=== PATIENT | female | born 1940 | race Caucasian/White ===

== ENCOUNTER 2016-12-15 09:04 | Inpatient (IN) | payer SELFPAY ==
[~2016-12-15] VITALS: Ht 152.4 cm; Wt 65.4 kg
[2016-12-15] MEDS ORDERED: SOD CHLORIDE 0.9% 1,000 ML IV STA (09:49)
[2016-12-15 10:01] LABS: ADD SCAN DIFF NO
[2016-12-15 10:04] LABS: BASOPHILS % 0.7 % (0.0-2.0); EOSINOPHILS # 0.1 10^3/ul (0.0-0.5); EOSINOPHILS % 2.2 % (0.0-7.0); HEMATOCRIT 38.1 % (37.0-47.0); HEMOGLOBIN 12.7 g/dl (12.0-16.0); LYMPHOCYTES # 1.2 10^3/ul (0.8-2.9); LYMPHOCYTES % 20.5 % (15.0-51.0); MEAN CORPUSCULAR HEMOGLOBIN 31.8 pg (29.0-33.0); MEAN CORPUSCULAR HGB CONC 33.3 g/dl (32.0-37.0); MEAN CORPUSCULAR VOLUME 95.3 fl (82.0-101.0); MEAN PLATELET VOLUME 11.5 fl (7.4-10.4); MONOCYTE # 0.4 10^3/ul (0.3-0.9); NEUTROPHIL # 4.1 10^3/ul (1.6-7.5); NEUTROPHILS % 69.4 % (39.0-77.0); PLATELET COUNT 215 10^3/UL (140-415); RED CELL DISTRIBUTION WIDTH 13.6 % (11.5-14.5); WHITE BLOOD COUNT 5.8 10^3/ul (4.8-10.8)
[2016-12-15 10:12] LABS: ALBUMIN 4.3 g/dl (3.3-4.9); CHLORIDE 104 mmol/L (97-110); POTASSIUM 4.6 mmol/L (3.5-5.1); SODIUM 143 mmol/L (135-144)
[2016-12-15 10:14] LABS: CREATININE 0.76 mg/dl (0.44-1.00)
[2016-12-15 10:15] LABS: ALANINE AMINOTRANSFERASE 51 IU/L (13-69); ALBUMIN/GLOBULIN RATIO 1.22; ALKALINE PHOSPHATASE 182 IU/L (42-121); ANION GAP 18 (8-16); ASPARTATE AMINO TRANSFERASE 54 IU/L (15-46); BILIRUBIN,INDIRECT 0.3 mg/dl (0-1.1); BILIRUBIN,TOTAL 0.3 mg/dl (0.2-1.3); BLOOD UREA NITROGEN 21 mg/dl (7-20); CALCIUM 9.7 mg/dl (8.4-10.2); CARBON DIOXIDE 26 mmol/L (21-31); GLUCOSE 74 mg/dl (70-220); TOTAL PROTEIN 7.8 g/dl (6.1-8.1)
--- NOTE | 2016-12-15 10:27 | RADRPT ---
PROCEDURE: XR Chest AP portable CLINICAL INDICATION: Trauma, fall, abdominal pain TECHNIQUE: An AP portable radiograph of the chest was submitted. COMPARISON: None. FINDINGS: Support Hardware: None Cardiovascular: The cardiovascular silhouette appears unremarkable except for atherosclerotic change involving the aorta. Lung Jama: The lung jama appear clear with no nodule, alveolar infiltrate, or interstitial promi nence evident. Pleural Spaces: No pneumothorax or pleural effusion is identified. Osseous Structures: The osseous elements appear rarefied. Soft Tissues: The soft tissues appear unremarkable. IMPRESSION: 1. Atherosclerotic aorta 2. Otherwise, unremarkable portable chest. Physician Ricky Date Time Electronically viewed and signed by Physician Ricky on 12/15/2016 10:26 /
[2016-12-15 10:31] LABS: TROPONIN-I < 0.012 ng/ml (0.00-0.12)
[2016-12-15 10:32] LABS: ADD UMIC YES; URINE BILIRUBIN (Dip) NEGATIVE (NEGATIVE); URINE BLOOD (Dip) 1+ (NEGATIVE); URINE COLOR LT. YELLOW (YELLOW); URINE GLUCOSE (Dip) NEGATIVE (NEGATIVE); URINE KETONES (Dip) NEGATIVE (NEGATIVE); URINE LEUKOCYTE ESTERASE (Dip) TRACE (NEGATIVE); URINE NITRITE (Dip) NEGATIVE (NEGATIVE); URINE TOTAL PROTEIN (Dip) TRACE (NEGATIVE); URINE UROBILINOGEN (Dip) 0.2 E.U./dL (0.1-1.0)
--- NOTE | 2016-12-15 10:43 | RADRPT ---
PROCEDURE: CT head without Contrast CLINICAL INDICATION: Fall with possible syncope, confused, rule out bleed TECHNIQUE: Transaxial images were made through the head on a multi-slice scanner without intraveno us contrast. Coronal and sagittal images were subsequently reformatted. One or more of the following dose reduction techniques were used: - Automated exposure control. - Adjustment of the mA and/or kV according to patient size. - Use of iterative reconstruction technique. Radiation dose: CTDIvol = 44.58 mGy; DLP = 720.23 mGy-cm. COMPARISON: None FINDINGS: The calvarium appears intact. The paranasal sinuses are well-aerated. There is lack of aeration of the left mastoid air cells and inner ear ossicles are not identified on the left. The right mastoi d region appears normal.. The ventricles are borderline enlarged but proportionate to the prominent fissures and sulci compati ble with mild diffuse cortical volume loss which is age appropriate. Patchy hypodensities in the de ep white matter tracts suspicious for chronic small vessel ischemic change. No intracranial bleed, mass, or extra-axial fluid collection is identified. There is mild atherosclerotic vascular calcification. IMPRESSION: 1. Mild cortical atrophy with chronic-appearing central small vessel ischemic change. 2. No intracranial bleed, mass, or extra-axial fluid collection is evident. 3. Atherosclerotic vascular calcification. 4. 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 Physician Ricky Date Time Electronically viewed and signed by Physician Ricky on 12/15/2016 10:43 /
--- NOTE | 2016-12-15 11:49 | ERA ---
ER Documentation Chief Complaint Date/Time DATE: 12/15/16 TIME: 11:48 Chief Complaint FALL S/P POSSIBLE SYNCOPAL EPISODE, FAMILY STATES PT CONFUSED AFTER FALL HPI 76-year-old woman brought in by EMS for possible syncopal episode. She was found laying on the floor of her room and initially appeared confused. Neither the patient nor family members know if there was loss of consciousness. Patient does not recall anything and denies any symptoms at this time. Family members cannot add to the HPI despite repetitive questioning from me. ROS All systems reviewed and are negative except as per history of present illness. Medications Home Meds Reported Medications Metformin* (Glucophage*) Unknown Strength Tab, PO WITH BREAKFAST, #30 TAB 12/15/16 Captopril* (Captopril*) Unknown Strength Tablet, PO DAILY, #90 TAB 12/15/16 Allergies Allergies: Coded Allergies: No Known Allergy (Unverified , 12/15/16) PMhx/Soc Hypertension, diabetes mellitus, dementia Medical and Surgical Hx: pt denies Surgical Hx History of Surgery: No Hx Cardiac Disorders: Yes (hypertension) Hx Miscellaneous Medical Probl: Yes (diabetes mellitus ) Hx Alcohol Use: No Hx Substance Use: No Hx Tobacco Use: No Smoking Status: Never smoker FmHx Family History: No diabetes Physical Exam Vitals Vital Signs Date Time Temp Pulse Resp B/P Pulse Ox O2 Delivery O2 Flow Rate FiO2 12/15/16 11:40 60 16 176/83 99 Room Air 12/15/16 09:11 97.6 69 18 213/98 100 Physical Exam GENERAL: Well-developed, well-nourished, well-hydrated, in no apparent distress , looks nontoxic in appearance HEENT: Moist mucous membranes, pink conjunctiva, no cervical spine tenderness or step-off deformities, no goiter, no jaundice or icterus, extraocular movements intact without pain. No submandibular induration, and no pharyngeal erythema NEURO: Alert and oriented 3, cranial nerves II through XII intact bilaterally, pupils equal round reactive to light, no focal deficits or facial asymmetry, sensation intact distally Strength 5/5 in upper and lower extremities bilaterally CARDIAC: Regular rate and rhythm, no murmurs rubs or gallops LUNGS: Clear bilaterally no wheezing crackles or stridor ABDOMEN: Soft nontender, no guarding, no rigidity, no rebound, no psoas sign no obturator sign. Normoactive bowel sounds SKIN: Warm and dry to touch, no abrasions, contusions, or hematomas, no lacerations, no ecchymosis, no target lesions, and without ulcers EXTREMITIES: No clubbing cyanosis or edema, calves are bilaterally symmetrical, no Homans sign, no popliteal cord sign. Distal pulses equal and bilateral PSYCH: Normal affect without agitation or irritability Result Diagram: 12/16/16 0645 12/16/16 0645 Results 24 hrs Laboratory Tests Test 12/15/16 09:59 12/15/16 10:00 12/15/16 10:20 Alanine Aminotransferase (ALT/SGPT) 51IU/L Albumin 4.3g/dl Albumin/Globulin Ratio 1.22 Alkaline Phosphatase 182IU/L Anion Gap 18 Aspartate Amino Transf (AST/SGOT) 54IU/L Basophils # 0.010^3/ul Basophils % 0.7% Blood Urea Nitrogen 21mg/dl Calcium Level 9.7mg/dl Carbon Dioxide Level 26mmol/L Chloride Level 104mmol/L Creatinine 0.76mg/dl Direct Bilirubin 0.00mg/dl Eosinophils # 0.110^3/ul Eosinophils % 2.2% Globulin 3.50g/dl Glucose Level 74mg/dl Hematocrit 38.1% Hemoglobin 12.7g/dl Indirect Bilirubin 0.3mg/dl Lipase 240U/L Lymphocytes # 1.210^3/ul Lymphocytes % 20.5% Mean Corpuscular Hemoglobin 31.8pg Mean Corpuscular Hemoglobin Concent 33.3g/dl Mean Corpuscular Volume 95.3fl Mean Platelet Volume 11.5fl Monocytes # 0.410^3/ul Monocytes % 7.0% Neutrophils # 4.110^3/ul Neutrophils % 69.4% Nucleated Red Blood Cells # 0.010^3/ul Nucleated Red Blood Cells % 0.0/100WBC Platelet Count 90051^3/UL Potassium Level 4.6mmol/L Red Blood Count 4.0010^6/ul Red Cell Distribution Width 13.6% Sodium Level 143mmol/L Total Bilirubin 0.3mg/dl Total Protein 7.8g/dl Troponin I < 0.012ng/ml White Blood Count 5.810^3/ul Free Thyroxine 1.21ng/dl Hemoglobin A1c 6.7% Vitamin D 1,25-Dihydroxy < 12.8ng/ml Urine Bilirubin NEGATIVE Urine Clarity CLEAR Urine Color LT. YELLOW Urine Epithelial Cells RARE Urine Glucose NEGATIVE% Urine Hemoglobin 1+ Urine Ketones NEGATIVE Urine Leukocyte Esterase TRACE Urine Microscopic RBC 2-5/HPF Urine Microscopic WBC 0-2/HPF Urine Nitrite NEGATIVE Urine Specific [place] 1.015 Urine Total Protein TRACE Urine Urobilinogen 0.2 E.U./dL Urine pH 5.5 Current Medications Medications (Trade) Dose Ordered Sig/Bridgette Route PRN Reason Start Time Stop Time Status Last Admin Dose Admin Sodium Chloride (NS) 1,000 ml @ 1,000 mls/hr Q1H STAT IV 12/15/16 09:49 12/15/16 10:48 DC 12/15/16 10:14 Procedures/MDM IV line was established patient was placed on quality assurance monitor rhythm strip revealed a sinus rhythm at about 60 bpm with upright P and T waves. EKG performed, read by me: 61 bpm, normal sinus rhythm, normal axis, no acute ST segment changes, narrow QRS complex, with good R-wave progression in precordial leads. CBC and electrolytes are normal, liver function tests were normal, troponin was negative. Urine analysis was unremarkable. CT scan of the brain was performed is negative for acute bleed mass or shift. One AP view of the chest performed, read by me reveals no acute infiltrates, normal mediastinum, sharp costophrenic and cardiac borders, no air under the diaphragm. Otherwise unremarkable chest x-ray. I administered 1 L normal saline intravenously and for hypertension I administered enalapril 1.25 mg IV 1. Departure Diagnosis: Primary Impression: Syncope Qualified Code: R55 - Syncope, unspecified syncope type Additional Impressions: Encephalopathy Hypertension Qualified Code: I10 - Essential hypertension Condition: RICHARD Amanda MD Dec 15, 2016 11:49
[2016-12-15] MEDS ORDERED: ENALAPRILAT 1.25 MG INJ IV ONE (12:00)
[2016-12-15] MEDS ORDERED: CAPT25TA3 PO (12:17)
[2016-12-15] MEDS ORDERED: METF500T4 PO (12:18)
[2016-12-15 13:45] VITALS: TEMP 97.6
[2016-12-15 14:00] VITALS: Ht 152.4 cm; Wt 65.4 kg
[2016-12-15 14:15] VITALS: BP 138/63; PULSE 67; RESP 16
[2016-12-15] MEDS ORDERED: NACL 0.9% 3 ML SYG IV SCH (14:30)
[2016-12-15] MEDS ORDERED: hydrALAzine 20 MG INJ IV PRN (14:30)
[2016-12-15] MEDS ORDERED: LORAZEPAM 2 MG INJ IV PRN (14:30)
[2016-12-15] MEDS ORDERED: MAGNESIUM HYDROXIDE 30ML CUP PO PRN (14:30)
[2016-12-15] MEDS ORDERED: ONDANSETRON 4 MG INJ IV PRN (14:30)
[2016-12-15] MEDS ORDERED: HYDROCODONE/APAP (5/325) TAB PO PRN (14:30)
[2016-12-15] MEDS ORDERED: GLUCOSE GEL 15 GRAM TUBE BUCCAL PRN (14:30)
[2016-12-15] MEDS ORDERED: GLUCOSE GEL 15 GRAM TUBE PO PRN ×2 (14:30)
[2016-12-15] MEDS ORDERED: BISACODYL (EC) 5 MG TAB PO PRN (14:30)
[2016-12-15] MEDS ORDERED: morphine 2 MG INJ IV PRN (14:30)
[2016-12-15] MEDS ORDERED: DEXTROSE 50% 50 ML SYRINGE IV PRN ×2 (14:30)
[2016-12-15] MEDS ORDERED: GLUCAGON 1 MG INJ IM PRN (14:30)
[2016-12-15 14:40] VITALS: PULSE 73
--- NOTE | 2016-12-15 15:43 | RADRPT ---
PROCEDURE: Carotid ultrasound CLINICAL INDICATION: Syncope, carotid bruits TECHNIQUE: Foreman scale, color doppler, spectral doppler ultrasound of the bilateral carotid and marlon tebral arteries. This study indirectly references the measurement of the distal ICA diameter as the denominator for s tenosis measurement. Validated velocity measurements with angiographic measurements, velocity criter ia are extrapolated from diameter data as defined by: *Cartoid artery stenosis: foreman-scale and Doppl er US diagnosis. Society of Radiologists in Ultrasound Consensus Conference. Radiology 2003; 229: 34 0-346. SRU Consensus Conference Criteria for the Diagnosis of Carotid Artery Stenosis* Degree of Stenosis, % ICA PSV, cm/sec Plaque Estimate, % ICA/CCA PSV Ratio Normal <125 None <2.0 <50 <125 <50 <2.0 50 69 125-230 >50 2.0-4.0 >70 but less than near occlusion >230 >50 <4.0 Near occlusion High, low, or undetectable Visible Variable Total occlusion Undetectable Visible, no detectable lumen Not applicable COMPARISON: No prior studies are available for comparison. FINDINGS: Location Right CCA49 cm/sec Prox ICA 41 cm/sec Mid ICA75 cm/sec Dist ICA74 cm/sec ECA53 cm/sec ICA/CCA1.5 Left CCA79 cm/sec Prox ICA 73 cm/sec Mid ICA49 cm/sec Dist ICA56 cm/sec ECA68 cm/sec ICA/CCA1.2 Plaque burden: A small amount of plaque is present within the visualized portions of both internal c arotid arteries however there is no evidence of flow acceleration to suggest a hemodynamically signi ficant stenosis. Antegrade flow is seen within the vertebral arteries bilaterally. IMPRESSION: A small amount of plaque is present within the visualized portions of both internal carotid arteries however there is no evidence of flow acceleration to suggest a hemodynamically significant stenosis . RPTAT: AADD .Mario Cat MD, Date Time Electronically viewed and signed by .Mario Cat MD, on 12/15/2016 15:43 .B/
[2016-12-15] MEDS ORDERED: INFLUENZA VIRUS VACCINE 0.5 ML SYG IM* ONE (16:00)
[2016-12-15] MEDS: SOD CHLORIDE 0.9% 1,000 ML IV SCH (16:03)
[2016-12-15] MEDS: LISINOPRIL 10 MG TAB PO SCH (16:03)
[2016-12-15 16:07] LABS: CREATINE KINASE 63 IU/L (23-200)
[2016-12-15 16:56] VITALS: PULSE 62
--- NOTE | 2016-12-15 17:03 | HP ---
DATE OF ADMISSION: 12/15/2016 TIME OF EVALUATION: 12:00 p.m. REASON FOR ADMISSION: Unwitnessed fall at home and acute onset of confusion. HISTORY OF PRESENT ILLNESS: This is a 76-year-old female with past medical history of essential hypertension and diabetes, who was brought to the emergency room by family members after the patient was found on the floor and confused at her residence. The patient lives with her daughter, and she was found on the carpet confused. It is unclear whether the patient fell down or not. There were no obvious injuries. The patient's family denied hearing any falls. As per the patient's family, before this event she was completely awake , alert, and oriented. There were no reported fevers. The patient was completely in her normal status before she was found down on the floor. The patient denied any chest pain or headache. There was no obvious injuries visible. In the emergency room, the patient underwent a brain CT scan that showed no evidence of any acute intracranial findings. The patient's 12-lead EKG showed normal sinus rhythm. The patient's urinalysis showed trace positive leukocyte esterase in urine microscopic, WBC of 0 to 2. The patient was noticed to have some prerenal azotemia. The patient was noticed to have a blood pressure of 213 /98 in the emergency room. She was treated with IV enalapril in the emergency room. PAST MEDICAL HISTORY: Essential hypertension, type 2 diabetes mellitus. PAST SURGICAL HISTORY: None. SOCIAL HISTORY: The patient lives at home with her daughter. Denies any use of tobacco, alcohol, or illicit drugs. HOME MEDICATIONS: 1. Captopril unknown dose p.o. daily. 2. Metformin unknown dose p.o. with breakfast. REVIEW OF SYSTEMS: Unable to get a meaningful review of systems because the patient is confused. PHYSICAL EXAMINATION: VITAL SIGNS: Temperature 97.6, pulse rate 70, respiratory rate 16, blood pressure 138/63, oxygen saturation 94% on room air. GENERAL: This is an elderly female lying in bed in no apparent distress. HEENT: Head normocephalic and atraumatic. Anicteric sclerae. Conjunctivae clear. ENT: Nasal septum is midline. Oral mucosa is dry. NECK: Supple. No JVD noticed. RESPIRATORY: Bilaterally clear to auscultation. No adventitious breath sounds heard. No use of accessory muscles of respiration. CARDIAC: Regular rate and rhythm. No murmurs heard. GASTROINTESTINAL: Abdomen soft, nontender and nondistended. Bowel sounds positive in all 4 quadrants. GENITOURINARY: Deferred. EXTREMITIES: No cyanosis, no clubbing, no edema. Peripheral pulses are palpable. NEUROLOGIC: The patient is awake and alert. Oriented x1. Moves all 4 extremities. No focal deficits. LABORATORY AND DIAGNOSTIC DATA: WBC 5.8, hemoglobin 12.7, hematocrit 38.1, platelet count 215. Sodium 143, potassium 4.6, chloride 104, carbon dioxide 26 , anion gap 18, BUN 21, creatinine 0.76, glucose 74, calcium 9.7. AST 54, ALT 51, alkaline phosphatase 182. Troponin less than 0.012. Urinalysis: Urine nitrite negative, leukocyte esterase trace, urine microscopic WBC 0 to 2. Chest x-ray: Atherosclerotic aorta. Brain CT scan: Mild cortical atrophy with chronic-appearing small vessel ischemic changes. No intracranial bleed, mass, or extraaxial fluid collection. IMPRESSION: This is a 76-year-old female patient who was brought to the emergency room because of sudden onset of confusion, and the patient was found on the floor, who will be admitted here for further treatment and evaluation. ASSESSMENT AND PLAN: 1. Acute encephalopathy. Etiology unclear. Brain CT scan negative for any acute intracranial findings. The patient will be ruled out for any infectious etiology that is causing the patient's current confusion. The patient will also be ruled out for any underlying stroke. A brain MRI will be obtained. A 2D echocardiogram will be obtained to evaluate the left ventricular ejection fraction. A carotid Doppler study will be obtained to evaluate for any carotid artery stenosis. The patient will be monitored on telemetry floor. Speech therapy and physical therapy evaluation will be ordered. 2. Accelerated hypertension. The patient will be started on antihypertensives including p.r.n. antihypertensives for high systolic blood pressure readings. The patient's blood pressure will be lowered gradually. 3. Type 2 diabetes mellitus. The patient takes metformin at home. The patient will be started on sliding scale insulin along with Lantus insulin and premeal insulin. Hemoglobin A1c will be obtained on this patient. PLAN: The patient will be admitted to inpatient telemetry floor. The patient will be started on a carbohydrate controlled, low cholesterol diet. The patient will be started on DVT prophylaxis and gastrointestinal prophylaxis. The patient will remain a FULL CODE. Activities will be with assist. The rest of the patient's management will be based on the clinical course, the results of diagnostic studies, and input from consultants. Based on the patient's clinical presentation, she most probably requires at least 1 midnight's stay for further management and evaluation of her clinical presentation. The case and management of this patient was fully discussed with Dr. Covington. Approximately 50 minutes were spent on the history and physical of this patient. GAGE COVINGTON MD, AM/SHANTE Conf#: [id number] DID#: [id number] MTDD
[2016-12-15 17:08] LABS: B-TYPE NATRIURETIC PEPTIDE 152 PG/ML (0-450); TROPONIN-I < 0.012 ng/ml (0.00-0.12)
[2016-12-15] MEDS: INSULIN ASPART [NOVOLOG] 3 ML PEN SC SCH ×3 (18:05→20:15)
[2016-12-15 20:07] VITALS: PULSE 63
[2016-12-15] MEDS: FAMOTIDINE 20 MG TAB PO SCH (20:15)
[2016-12-15] MEDS: INSULIN GLARGINE [LANtus] 3 ML PEN SC SCH (21:54)
[2016-12-15 22:06] LABS: CREATINE KINASE 84 IU/L (23-200)
[2016-12-15 22:16] LABS: CK-MB 2.08 ng/ml (0.0-2.4)
[2016-12-15 22:22] LABS: TROPONIN-I < 0.012 ng/ml (0.00-0.12)
[2016-12-15 23:49] VITALS: BP 195/79; RESP 18
[2016-12-16] VITALS (11 sets, daily range): BP systolic 124–149; BP diastolic 65–74; PULSE 60–72; RESP 17–20
[2016-12-16 07:19] LABS: ADD SCAN DIFF NO
[2016-12-16 07:32] LABS: BASOPHILS % 0.9 % (0.0-2.0); EOSINOPHILS # 0.2 10^3/ul (0.0-0.5); EOSINOPHILS % 3.6 % (0.0-7.0); HEMATOCRIT 35.6 % (37.0-47.0); HEMOGLOBIN 11.8 g/dl (12.0-16.0); LYMPHOCYTES # 1.2 10^3/ul (0.8-2.9); MEAN CORPUSCULAR HEMOGLOBIN 31.1 pg (29.0-33.0); MEAN CORPUSCULAR HGB CONC 33.1 g/dl (32.0-37.0); MEAN CORPUSCULAR VOLUME 93.9 fl (82.0-101.0); MEAN PLATELET VOLUME 10.6 fl (7.4-10.4); MONOCYTE # 0.4 10^3/ul (0.3-0.9); MONOCYTES % 8.8 % (0.0-11.0); NEUTROPHIL # 2.8 10^3/ul (1.6-7.5); NEUTROPHILS % 60.5 % (39.0-77.0); PLATELET COUNT 226 10^3/UL (140-415); RED BLOOD COUNT 3.79 10^6/ul (4.20-5.40); RED CELL DISTRIBUTION WIDTH 13.7 % (11.5-14.5); WHITE BLOOD COUNT 4.7 10^3/ul (4.8-10.8)
[2016-12-16 07:55] LABS: CHOL/HDL RATIO 2.1 RATIO; MAGNESIUM 1.5 mg/dl (1.7-2.5); PHOSPHORUS 3.1 mg/dl (2.5-4.9)
[2016-12-16 07:57] LABS: POTASSIUM 3.6 mmol/L (3.5-5.1)
[2016-12-16 07:59] LABS: CREATININE 0.68 mg/dl (0.44-1.00)
[2016-12-16 08:00] LABS: CALCIUM 9.1 mg/dl (8.4-10.2)
[2016-12-16] MEDS: INSULIN ASPART [NOVOLOG] 3 ML PEN SC SCH ×7 (08:00→20:14)
[2016-12-16] MEDS: SOD CHLORIDE 0.9% 1,000 ML IV SCH ×2 (08:14→21:11)
[2016-12-16] MEDS: CHOLECALCIFEROL 1,000 UNIT TAB PO SCH (08:15)
[2016-12-16] MEDS: ASPIRIN (EC) 81 MG TAB PO SCH (08:15)
[2016-12-16] MEDS: LISINOPRIL 10 MG TAB PO SCH (08:15)
[2016-12-16] MEDS: FAMOTIDINE 20 MG TAB PO SCH ×2 (08:15→21:11)
[2016-12-16] MEDS: ENOXAPARIN 30 MG/0.3 ML SYG SC SCH (08:16)
--- NOTE | 2016-12-16 17:23 | PN ---
Date/Time of Note Date/Time of Note DATE: 12/16/16 TIME: 17:20 Assessment/Plan VTE Prophylaxis VTE Prophylaxis Intervention: SCD's Lines/Catheters IV Catheter Type (from [facility]): Peripheral IV Urinary Cath still in place: No Assessment/Plan Chief Complaint/Hosp Course Assessment and plan 1. Acute encephalopathy. Brain CT was negative for any acute intracranial findings. Carotid Doppler negative for any acute stenosis. Brain MRI is pending. Awaiting 2D echocardiogram. Continue with supportive measures. Appears to be improving at present. 2. Accelerated hypertension. Continue antihypertensives and adjust as needed 3. Type 2 diabetes. Continue on insulin regimen. Disposition and plan: Appears overall improved. Awaiting brain MRI. Discharge when medically stable and cleared by Discussed plan of care with Problems: Subjective 24 Hr Interval Summary Free Text/Dictation Alert and oriented. No apparent distress noted at this time Exam/Review of Systems Vital Signs Vitals Vital Signs Date Time Temp Pulse Resp B/P Pulse Ox O2 Delivery O2 Flow Rate FiO2 12/16/16 16:42 69 12/16/16 16:18 97.9 17 149/72 97 12/15/16 14:15 Room Air Intake and Output 12/15/16 12/15/16 12/16/16 15:00 23:00 07:00 Intake Total 200 ml 480 ml Balance 200 ml 480 ml Exam General: Remains alert and oriented. No apparent distress Eyes: Equal round reactive to light Neck: Supple nontender, no JVD Cardiac: Remains in regular rhythm. S1-S2 auscultated Pulmonary: No wheezing rhonchi GI: Soft nontender nondistended Extremities: No edema bilateral lower extremity Skin: Remains clean dry and intact Neurologic: Alert to person place and time Results Result Diagram: 12/16/16 0645 12/16/16 0645 Results 24 hrs Laboratory Tests Test 12/15/16 17:46 12/15/16 18:49 12/15/16 20:14 12/15/16 21:36 Bedside Glucose 189 90 132 Creatine Kinase 84 Creatine Kinase Index 2.5 Creatinine Kinase MB (Mass) 2.08 Troponin I < 0.012 Test 12/16/16 06:45 12/16/16 08:14 12/16/16 11:54 Anion Gap 15 Basophils # 0.0 Basophils % 0.9 Blood Urea Nitrogen 14 Calcium Level 9.1 Carbon Dioxide Level 24 Chloride Level 109 Cholesterol Level 119 Cholesterol/HDL Ratio 2.1 Creatinine 0.68 Eosinophils # 0.2 Eosinophils % 3.6 Glucose Level 74 HDL Cholesterol 56 Hematocrit 35.6 L Hemoglobin 11.8 L LDL Cholesterol, Calculated 44 Lymphocytes # 1.2 Lymphocytes % 26.0 Magnesium Level 1.5 L Mean Corpuscular Hemoglobin 31.1 Mean Corpuscular Hemoglobin Concent 33.1 Mean Corpuscular Volume 93.9 Mean Platelet Volume 10.6 H Monocytes # 0.4 Monocytes % 8.8 Neutrophils # 2.8 Neutrophils % 60.5 Nucleated Red Blood Cells # 0.0 Nucleated Red Blood Cells % 0.0 Phosphorus Level 3.1 Platelet Count 226 Potassium Level 3.6 Red Blood Count 3.79 L Red Cell Distribution Width 13.7 Sodium Level 144 Triglycerides Level 94 White Blood Count 4.7 L Bedside Glucose 92 147 Medications Medications Current Medications Lorazepam (Ativan) 0.5 mg Q6H PRN IV ANXIETY; Start 12/15/16 at 14:30 Ondansetron HCl (Zofran Inj) 4 mg Q6H PRN IV NAUSEA AND/OR VOMITING; Start 09/21 at 14:30 Acetaminophen/ Hydrocodone Bitart ([place] (5/325)) 1 tab Q6H PRN PO PAIN LEVEL 4 -6; Start 12/15/16 at 14:30 Morphine Sulfate (morphine) 2 mg Q4H PRN IV PAIN LEVEL 7-10; Start 12/15/16 at 14:30 Magnesium Hydroxide (Milk Of Mag) 30 ml DAILY PRN PO CONSTIPATION; Start at 14:30 Bisacodyl (Dulcolax) 5 mg DAILY PRN PO CONSTIPATION; Start 12/15/16 at 14:30 Famotidine (Pepcid) 20 mg Q12 PO Last administered on 12/16/16 08:15; Admin Dose 20 MG; Start 12/15/16 at 21:00 Enoxaparin Sodium (Lovenox) 30 mg DAILY SC Last administered on 12/16/16 08:16 ; Admin Dose 30 MG; Start 12/16/16 at 09:00 Hydralazine HCl 10 mg 10 mg Q6H PRN IV SBP>180 Last administered on 12/16/16 00:10; Admin Dose 10 MG; Start 12/15/16 at 14:30 Sodium Chloride (NS) 1,000 ml @ 60 mls/hr [id number] IV Last administered on 12/16 08:14; Admin Dose 60 MLS/HR; Start 12/15/16 at 14:30 Lisinopril (Zestril) 10 mg DAILY PO Last administered on 12/16/16 08:15; Admin Dose 10 MG; Start 12/15/16 at 14:30 Insulin Glargine (Lantus) 6 unit DAILY@20 SC Last administered on 12/15/16 21: 54; Admin Dose 6 UNIT; Start 12/15/16 at 20:00 Miscellaneous Information 1 ea NOTE XX ; Start 12/15/16 at 14:30 Glucose (Glutose) 15 gm Q15M PRN PO DECREASED GLUCOSE; Start 12/15/16 at 14:30 Glucose (Glutose) 22.5 gm Q15M PRN PO DECREASED GLUCOSE; Start 12/15/16 at 14: 30 Dextrose (D50w Syringe) 25 ml Q15M PRN IV DECREASED GLUCOSE; Start 12/15/16 at 14:30 Dextrose (D50w Syringe) 50 ml Q15M PRN IV DECREASED GLUCOSE Last administered on 12/15/16 17:21; Admin Dose 50 ML; Start 12/15/16 at 14:30 Glucagon (Glucagen) 1 mg Q15M PRN IM DECREASED GLUCOSE; Start 12/15/16 at 14:30 Glucose (Glutose) 15 gm Q15M PRN BUCCAL DECREASED GLUCOSE; Start 12/15/16 at 14 :30 Cholecalciferol (Vitamin D) 1,000 unit DAILY PO Last administered on 12/16/16 08:15; Admin Dose 1,000 UNIT; Start 12/16/16 at 09:00 Aspirin (Halfprin) 81 mg DAILY PO Last administered on 12/16/16 08:15; Admin Dose 81 MG; Start 12/16/16 at 09:00 KIP HERRING Dec 16, 2016 17:23
[2016-12-16] MEDS: INSULIN GLARGINE [LANtus] 3 ML PEN SC SCH (21:12)
[2016-12-16 22:15] LABS: ADD UMIC NO; URINE BILIRUBIN (Dip) NEGATIVE (NEGATIVE); URINE BLOOD (Dip) NEGATIVE (NEGATIVE); URINE COLOR LT. YELLOW (YELLOW); URINE GLUCOSE (Dip) NEGATIVE (NEGATIVE); URINE KETONES (Dip) NEGATIVE (NEGATIVE); URINE LEUKOCYTE ESTERASE (Dip) NEGATIVE (NEGATIVE); URINE NITRITE (Dip) NEGATIVE (NEGATIVE); URINE TOTAL PROTEIN (Dip) NEGATIVE (NEGATIVE); URINE UROBILINOGEN (Dip) 0.2 E.U./dL (0.1-1.0)
[2016-12-17] VITALS (10 sets, daily range): BP systolic 134–159; BP diastolic 58–74; PULSE 60–73; RESP 17–18
--- NOTE | 2016-12-17 07:43 | RADRPT ---
PROCEDURE: MR Brain noncontrast. CLINICAL INDICATION: Encephalopathy. TECHNIQUE: Multiplanar multisequence noncontrast MRI of the brain was performed. COMPARISON: Noncontrast CT of the head from December 20, 2016. FINDINGS: There is minimal generalized cerebral volume loss. There are moderate scattered bilateral subcortical and periventricular T2 hyperintensities suggestin g chronic microvascular ischemic changes. There is a chronic left centrum semiovale lacunar infarcti on. There is no acute infarction. There is no intracranial hemorrhage or extra-axial fluid collection. There is no mass effect. There is no midline shift. The brainstem is within normal limits. The posterior fossa is unremarkable. The normal intracranial, intravascular flow voids are preserved. There is minimal bilateral ethmoid sinus mucosal thickening. The orbits are grossly unremarkable. There is no destructive osseous lesion. There is pneumatization / sclerosis of the left mastoid air cells from sequelae of prior infectious/inflammatory etiologies. IMPRESSION: 1. No acute infarction or intracranial hemorrhage. 2. Moderate chronic microvascular ischemic changes. 3. Minimal generalized cerebral volume loss. 4. Chronic left centrum semiovale lacunar infarction. Further findings as detailed above. RPTAT: PP .Ramon Zaidi MD, Date Time Electronically viewed and signed by .Ramon Zaidi MD, on 12/17/2016 07:42 .F/
[2016-12-17] MEDS: CHOLECALCIFEROL 1,000 UNIT TAB PO SCH (07:56)
[2016-12-17] MEDS: ASPIRIN (EC) 81 MG TAB PO SCH (07:57)
[2016-12-17] MEDS: FAMOTIDINE 20 MG TAB PO SCH (07:57)
[2016-12-17] MEDS: LISINOPRIL 10 MG TAB PO SCH (07:57)
[2016-12-17] MEDS: ENOXAPARIN 30 MG/0.3 ML SYG SC SCH (07:59)
[2016-12-17] MEDS: INSULIN ASPART [NOVOLOG] 3 ML PEN SC SCH ×6 (08:00→18:05)
--- NOTE | 2016-12-17 13:35 | RADRPT ---
Echocardiogram Report Patient Name: PERICO RODRIGUEZ Gender: Female Date: 1940 Study Date: 16-Dec-2016 Chemical Sprayer: John Davila [facility] Location: [id number] Ref. Physician: GAGE PATTERSON Quality: Good Procedures: Transthoracic echocardiogram with complete 2D, M-Mode, and doppler examination. Indications: Evaluate Left Ventricular function. 2D/M Mode Doppler Measurement Value Normal Ranges Measurement Value Normal Ranges LVIDd 2D 5.3 3.5 - 5.6 cm AV Peak Andrew 1.5 m/sec LVIDs 2D 2.4 2.1 - 4.1 cm AV Peak PG 9.0 mmHg FS 2D 55.3 % LVOT Peak Andrew 1.1 m/sec LVPWd 2D 0.8 0.6 - 1.1 cm LVOT Peak PG 5.0 mmHg IVSd 2D 0.7 0.6 - 1.1 cm MV E Peak Andrew 0.7 m/sec IVS/LVPW 2D 0.9 MV A Peak Andrew 0.9 m/sec AoR Diam 2D 2.5 2.0 - 3.7 cm MV E/A 0.8 LA/Ao 2D 1 0 - 1 MV Decel Time 222 msec EDV 2D 151.0 cm3 MV E/A 0.8 ESV 2D 13.5 cm3 TR Peak Andrew 2.4 m/sec LA Dimen 2D 3.5 2.3 - 4.0 cm TR Peak PG 23.0 mmHg RVSP 26.0 mmHg Findings Left Ventricle: Normal left ventricular systolic function. Normal left ventricular cavity size. Normal left ventricular wall thickness. Ejection fraction is visually estimated at 5560 %. Tissue Doppler/Mitral Doppler indices are consistent with impaired relaxation (Stage I diastolic dysfunction). Right Ventricle: Normal right ventricular size. Normal right ventricular systolic function. Left Atrium: The left atrium is normal in size. Right Atrium: The right atrium is normal in size. Mitral Valve: Mitral valve leaflets appear mildly thickened. Mild mitral annular calcification. Trace mitral regurgitation. Aortic Valve: No hemodynamically significant aortic stenosis by doppler. Aortic cusps appear mildly calcified. Trace aortic valve regurgitation. Tricuspid Valve: Normal appearance of the tricuspid valve. Estimated peak PA systolic pressure 26 mmHg. There is trace tricuspid regurgitation. Pulmonic Valve: Normal pulmonic valve appearance. Pericardium: Normal pericardium with no significant pericardial effusion. Aorta: Normal aortic root. IVC: Normal size and normal respiratory collapse consistent with normal right atrial pressure. Conclusions 1.The left ventricle is normal in size and systolic function. 2.Estimated left ventricular ejection fraction of 55-60%. 3.Mild left ventricular diastolic dysfunction. Electronically Signed By: Luis Eduardo Rodríguez 17-Dec-2016 13:34:11 -0700 Patient Name: PERICO RODRIGUEZ Study Date: 16-Dec-2016 [id number]
[2016-12-17] MEDS: SOD CHLORIDE 0.9% 1,000 ML IV SCH (15:21)
[2016-12-17] MEDS ORDERED: ASPI-664 PO (16:07)
[2016-12-17] MEDS ORDERED: CHOL100062 PO (16:07)
[2016-12-17] MEDS ORDERED: METF-382 PO (16:07)
--- NOTE | 2016-12-17 16:11 | PDOCDIS ---
Discharge Instructions DIAGNOSIS Discharge Diagnosis: 1. reported encephalopathy 2. hx diabetes CONDITION Patient Condition: Stable HOME CARE INSTRUCTIONS: Special Diet: carb controlled FOLLOW UP/APPOINTMENTS Appointments 1. Follow up with your primary care provider in one week KIP HERRING Dec 17, 2016 16:11
--- NOTE | 2016-12-17 17:36 | DS ---
Date/Time of Note Date/Time of Note DATE: 12/17/16 TIME: 17:31 Discharge Summary Admission/Discharge Info Admit Date/Time Dec 15, 2016 at 11:40 Discharge Date/Time Final Diagnosis 1. Acute encephalopathy. 2. Accelerated hypertension. 3. Type 2 diabetes. Patient Condition: Stable Hospital Course Which likely was contamination.This is a 76-year-old female with history of essential hypertension, diabetes, came to [facility] after reportedly being found on the floor confused at her residence. According to report patient does live with her daughter and she was found on the carpet confused. Etiology unknown at this time of whether she fell or not. She did come to [facility] for further evaluation. Upon examination she did have CT scan of her brain was negative for any acute intracranial findings. Additionally twelve-lead EKG showed normal sinus rhythm. She did have trace positive leukocyte esterase test as well. Patient did have carotid Doppler study additionally was negative for any acute stenosis. Brain MRI also was negative for any acute intracranial findings but did show chronic left centrum se lacunar infarction. During the course of stay she did improve. Patient remained alert and oriented. No motor deficit noted. Patient with no dysphagia or aphasia. Suspect dizziness may have been from orthostatic hypotension. Patient educated about signs and symptoms of stroke. Additionally we did get final urine culture which likely was contamination . The plan of care was discussed with the patient and family and patient and family did verbalize their understanding. On the day of discharge patient was in stable condition Discussed plan of care with Dr. Delgado Discharge process 40 minutes Disposition: Home Home Meds Active Scripts Metformin Hcl* (Metformin Hcl*) 500 Mg Tablet, 500 MG PO WITH BREAKFAST DINNE, # 60 TAB Prov:KIP HERRING 12/17/16 Cholecalciferol* (Vitamin D3*) 1,000 Unit Tablet, 1000 UNIT PO DAILY for 30 Days , TAB Prov:KIP HERRING 12/17/16 Aspirin* (Aspirin* EC) 81 Mg Tablet.dr 81 MG PO DAILY for 30 Days Prov:KIP HERRING 12/17/16 Reported Medications Metformin* (Glucophage*) Unknown Strength Tab, PO WITH BREAKFAST, #30 TAB 12/15/16 Captopril* (Captopril*) Unknown Strength Tablet, PO DAILY, #90 TAB 12/15/16 Follow-up Plan CONDITION Patient Condition: Stable HOME CARE INSTRUCTIONS: Special Diet: carb controlled FOLLOW UP/APPOINTMENTS Appointments 1. Follow up with your primary care provider in one week Pending Labs Laboratory Tests Test 12/16/16 20:13 12/17/16 07:46 12/17/16 12:27 Bedside Glucose 129mg/dL (70-220) 162mg/dL (70-220) 166mg/dL (70-220) KIP HERRING Dec 17, 2016 17:36
== END 2016-12-17 20:00 | disposition home or self-care (01) | DRG 72 ==
LOC: E/R 09:04 → MS4 11:40
PROVIDERS: ADMIT Family Medicine; ATTEND Family Medicine
DX: G93.40 Encephalopathy, unspecified (principal); F03.90 Unspecified dementia, unspecified severity, without behavioral disturbance, psychotic disturbance, mood disturbance, and anxiety; E11.9 Type 2 diabetes mellitus without complications; I10 Essential (primary) hypertension; Z79.84 Long term (current) use of oral hypoglycemic drugs
CPT/HCPCS: 36415; 70450; 70551; 71010; 80048; 80053; 80061; 81001; 81003; 82550; 82553; 82652; 82962; 83036; 83690; 83735; 83880; 84100; 84439; 84443; 84484; 85025; 87040; 87086; 90686; 92610; 93005; 93306; 93880; 96374; 97162; J0360; J1650; J1815; J7030; P9612